=== PATIENT | male | born 1960 | race Caucasian/White ===

== ENCOUNTER → 2016-06-13 | Day surgery (SDC) | payer MEDICARE ==
[2016-06-13 08:50] LABS: HCT 44.7 % (42.0-52.0); HGB 15.7 g/dl (13.2-18.0); MCH 31.2 pg (25.0-31.0); MCHC 35.1 g/dL (32.0-36.0); MCV 88.7 fL (78.0-100.0); MPV 9.5 fL (6.0-9.5); RBC 5.04 M/uL (4.70-6.00); RDW 13.3 % (11.5-14.0); WBC 7.1 K/uL (4.0-10.5)
[2016-06-13 09:01] LABS: ALBUMIN 4.5 g/dL (3.5-5.0); BILIRUBIN - TOTAL 0.5 mg/dL (0.1-1.0); GLOBULIN (CALCULATION) 2.1 g/dL (2.2-4.2); POTASSIUM 4.1 mmol/L (3.5-5.1); TOTAL PROTEIN 6.6 g/dL (6.4-8.3)
== END | disposition home or self-care (01) ==
LOC: FAS 07:59
PROVIDERS: Orthopaedic Surgery
DX: S43.432A Superior glenoid labrum lesion of left shoulder, initial encounter (principal); S46.812A Strain of other muscles, fascia and tendons at shoulder and upper arm level, left arm, initial encounter; S46.212A Strain of muscle, fascia and tendon of other parts of biceps, left arm, initial encounter; M65.812 Other synovitis and tenosynovitis, left shoulder; M25.812 Other specified joint disorders, left shoulder; M75.92 Shoulder lesion, unspecified, left shoulder; M19.012 Primary osteoarthritis, left shoulder; N40.0 Benign prostatic hyperplasia without lower urinary tract symptoms; Q85.00 Neurofibromatosis, unspecified; Z79.899 Other long term (current) drug therapy; Z79.891 Long term (current) use of opiate analgesic; Z79.1 Long term (current) use of non-steroidal anti-inflammatories (NSAID); Z98.890 Other specified postprocedural states; Z98.52 Vasectomy status; X58.XXXA Exposure to other specified factors, initial encounter
CPT/HCPCS: 36415; 71010; 80053; 93005; C1713; J1100; J2405; J2704; J2795; J3010